=== PATIENT | female | born 1945 | race Caucasian/White ===

== ENCOUNTER 2017-11-07 20:31 | Emergency (ER) | payer OTHER ==
[~2017-11-07] VITALS: Ht 160 cm; Wt 124.7 kg
[2017-11-07 21:53] LABS: Basophils # (auto) 0.1 uL; Basophils % (auto) 0.9 % (0.0-2.0); Eosinophils # (auto) 0.3 uL; Eosinophils % (auto) 2.5 % (0.0-7.0); Hematocrit 42.3 % (36.0-46.0); Hemoglobin 14.1 g/dL (12.2-16.2); Lymphocytes # (auto) 3.3 uL; Lymphocytes % (auto) 31.3 % (10.0-50.0); Mean Corpuscular Hemoglobin 29.4 pg (28.0-32.0); Mean Corpuscular Hgb Conc. 33.3 g/dL (32.0-36.0); Mean Corpuscular Volume 88.3 fL (80.0-100.0); Monocytes # (auto) 0.8 uL; Monocytes % (auto) 7.9 % (0.0-12.0); Neutrophils # (auto) 6.1 uL; Neutrophils % (auto) 57.4 % (37.0-80.0); Platelet Count (auto) 197 10^3/uL (140-450); Red Blood Cells 4.79 10^6/uL (4.0-5.20); Red Cell Distribution Width 14.2 % (11.8-14.3); White Blood Cell 10.6 10^3/uL (4.4-10.8)
[2017-11-07 22:15] LABS: Alanine Aminotransferase 32 U/L (13-56); Albumin 3.3 g/dL (3.4-5.0); Alkaline Phosphatase 61 U/L (45-117); Anion Gap 8 (5-15); Aspartate Aminotransferase 17 U/L (15-37); BUN/Creatinine Ratio 27.1; Bilirubin, Total 0.3 mg/dL (0.2-1.0); Blood Urea Nitrogen 29 mg/dL (7-18); Calcium 8.4 mg/dL (8.5-10.1); Carbon Dioxide 28 mmol/L (21-32); Chloride 106 mmol/L (98-107); GFR African American 65 mL/min; GFR Non-African American 54 mL/min; Glucose 168 mg/dL (74-106); Potassium 4.2 mmol/L (3.5-5.1); Sodium 142 mmol/L (136-145); Total Protein 6.6 g/dL (6.4-8.2)
[2017-11-07 22:54] LABS: Urine Bacteria NONE SEEN /hpf (None Seen); Urine Blood 2+ /uL (Negative); Urine Specific Gravity 1.028 (1.001-1.035); Urine WBC 8 /hpf (0 - 5)
[2017-11-07 23:13] LABS: Amylase 60 U/L (25-115); Lipase 420 U/L (73-393)
[2017-11-07 23:45] VITALS: BP 159/60
== END 2017-11-07 23:20 | disposition home or self-care (01) ==
LOC: ER 20:37
DX: N39.0 Urinary tract infection, site not specified (principal); I50.9 Heart failure, unspecified; I11.0 Hypertensive heart disease with heart failure; Z90.710 Acquired absence of both cervix and uterus; Z90.49 Acquired absence of other specified parts of digestive tract
CPT/HCPCS: 36415; 74176; 80053; 81001; 82150; 83690; 83880; 84484; 85025; 93005

== ENCOUNTER 2018-05-01 06:37 | Emergency (ER) | payer OTHER ==
[~2018-05-01] VITALS: Ht 170.2 cm; Wt 90.7 kg
[2018-05-01] MEDS ORDERED: SODIUM CHLORIDE 0.9% 1,000 ML IV ONE (07:41)
[2018-05-01] MEDS ORDERED: METOCLOPRAMIDE HCL 5MG/ml INJ 2ml VIAL IV ONE (07:45)
[2018-05-01] MEDS ORDERED: KETOROLAC TROMETH 30 MG/ML 1ML VIAL IV ONE (07:45)
[2018-05-01 08:04] LABS: Basophils # (auto) 0.1 uL; Basophils % (auto) 0.5 % (0.0-2.0); Eosinophils # (auto) 0 uL; Eosinophils % (auto) 0.1 % (0.0-7.0); Hematocrit 48.4 % (36.0-46.0); Hemoglobin 16.4 g/dL (12.2-16.2); Lymphocytes # (auto) 1.5 uL; Lymphocytes % (auto) 12.8 % (10.0-50.0); Mean Corpuscular Hemoglobin 29.7 pg (28.0-32.0); Mean Corpuscular Volume 87.5 fL (80.0-100.0); Monocytes # (auto) 0.6 uL; Monocytes % (auto) 5.1 % (0.0-12.0); Neutrophils # (auto) 9.3 uL; Neutrophils % (auto) 81.5 % (37.0-80.0); Platelet Count (auto) 208 10^3/uL (140-450); Red Blood Cells 5.53 10^6/uL (4.0-5.20); Red Cell Distribution Width 14.6 % (11.8-14.3); White Blood Cell 11.4 10^3/uL (4.4-10.8)
[2018-05-01 08:18] LABS: Urine Bacteria FEW /hpf (None Seen); Urine Blood TRACE /uL (Negative); Urine Specific Gravity 1.007 (1.001-1.035); Urine WBC 54 /hpf (0 - 5)
[2018-05-01 08:24] LABS: Albumin 3.6 g/dL (3.4-5.0); BUN/Creatinine Ratio 11.6; Calcium 9.2 mg/dL (8.5-10.1); Magnesium 2.2 mg/dL (1.6-2.6); Potassium 3.7 mmol/L (3.5-5.1)
[2018-05-01 08:27] LABS: Bilirubin, Total 0.8 mg/dL (0.2-1.0); Total Protein 7.6 g/dL (6.4-8.2)
[2018-05-01 09:55] VITALS: BP 180/85
[2018-05-01] MEDS ORDERED: cefTRIAXone 1GM/10ml IVPUSH 10 ML IV ONE (10:30)
== END 2018-05-01 11:00 | disposition home or self-care (01) ==
LOC: EDBD 06:37 → ER 06:37 → EDUNIT# 06:37 → ER 11:00
DX: M17.0 Bilateral primary osteoarthritis of knee (principal); M16.12 Unilateral primary osteoarthritis, left hip; F03.90 Unspecified dementia, unspecified severity, without behavioral disturbance, psychotic disturbance, mood disturbance, and anxiety; N39.0 Urinary tract infection, site not specified; E11.21 Type 2 diabetes mellitus with diabetic nephropathy; E66.01 Morbid (severe) obesity due to excess calories; E78.5 Hyperlipidemia, unspecified; I11.0 Hypertensive heart disease with heart failure; I50.9 Heart failure, unspecified; Z90.710 Acquired absence of both cervix and uterus; Z90.49 Acquired absence of other specified parts of digestive tract; Z68.31 Body mass index [BMI] 31.0-31.9, adult; W18.39XA Other fall on same level, initial encounter; Y93.89 Activity, other specified; Y99.8 Other external cause status; Y92.098 Other place in other non-institutional residence as the place of occurrence of the external cause
CPT/HCPCS: 36415; 51702; 73502; 73552; 73562; 80053; 81001; 83735; 84443; 85025; 93005; 96374; 96375; 99285; J0696; J1885; J2765; J7030